=== PATIENT | male | born 1970 | race Hispanic/Latino ===

== ENCOUNTER → 2019-09-30 | Outpatient (CLI) | payer BC ==
--- NOTE | 2019-09-30 14:02 | Diagnostic Imaging Report ---
Exam: Testicular ultrasound. Clinical History: Epididymitis Findings: Sonographic evaluation of the testicles. Both testes are normal in echogenicity and size without intratesticular mass. Normal symmetric blood flow without evidence of torsion. Right: The right testicle measures 4.3 x 2.3 x 2.8 cm and appears unremarkable. The right epididymis measures 1.5 x 0.8 x 1.3 cm and contains a 8 x 7 x 5 mm spermatocele. No enlargement or increased vascularity of the epididymis to suggest epididymitis. Trace right hydrocele. No varicocele. Left: The left testicle measures 3.6 x 2.3 x 3.0 cm and appears unremarkable. The left epididymis measures 1.2 x 0.7 x 1.0 cm and contains two 4 mm spermatoceles. No enlargement or increased vascularity of the epididymis to suggest epididymitis. Trace left hydrocele. No varicocele. Impression: No testicular torsion. No testicular mass. No evidence of epididymitis. Bilateral trace hydroceles. Bilateral subcentimeter spermatoceles. Signed by: Tejinder Elena MD on 09/30/2019 1:59 PM
== END ==
LOC: US 12:15
PROVIDERS: ATTEND Family Medicine
DX: N45.1 Epididymitis (principal)
CPT/HCPCS: 76870; 93976